=== PATIENT | female | born 1940 | race African-American/Black ===

== ENCOUNTER 2019-05-20 19:11 | Inpatient (IN) | payer OTHER ==
[~2019-05-20] VITALS: Ht 165.1 cm; Wt 87.1 kg
[~2019-05-20 19:11] MED LIST: AVELOX400 MG PO; CALCIUM 500 +1 EAC5; CO Q-1010 MG; DOXYCYCLINE 10100 MG PO; GLUCOPHAGE XR500 MG; MAGNESIUM100 MG; NAPROSYN500 MG; POTASSIUM20; PREDNISONE 20 M20 MG PO; PROVENTIL HFA6.7 G1 INH; RITALIN5 MG; VITAMIN D400 UNI1; VITAMIN E200 UNI4
[2019-05-20 19:12] VITALS: BP 173/83
[2019-05-20 19:59] LABS: ABSOLUTE NEUTROPHILS 13.3 thou/uL (1.4-8.2); BASOPHILS 0.6 % (0.0-2.0); EOSINOPHILS 0.7 % (0.0-3.0); HEMATOCRIT 41.6 % (37.0-47.0); HEMOGLOBIN 13.4 gm/dL (12.0-15.0); LYMPHOCYTES 4.7 % (24.0-44.0); MCH 26.2 pg (26.0-34.0); MCHC 32.2 g/dL (28.0-37.0); MCV 81.5 fL (80.0-100.0); MONOCYTES 6.7 % (1.0-8.0); PLATELET COUNT 206 thou/uL (150-400); POLYS 87.3 % (36.0-66.0); RBC 5.11 mil/uL (4.20-5.00); WBC 15.2 thou/uL (4.0-11.0)
[2019-05-20 20:07] LABS: ANION GAP 8 mmol/L (7-16); BUN 8 mg/dL (7-18); CALCIUM 9.9 mg/dL (8.5-10.1); CHLORIDE 101 mmol/L (98-107); CO2 30 mmol/L (21-32); GLUCOSE 140 mg/dL (74-106); POTASSIUM 3.7 mmol/L (3.5-5.1); SODIUM 139 mmol/L (136-145)
[2019-05-20 20:12] LABS: URINE BILIRUBIN NEGATIVE (Negative); URINE BLOOD NEGATIVE (Negative); URINE CLARITY CLEAR; URINE COLOR YELLOW; URINE GLUCOSE-RANDOM* NEGATIVE (Negative); URINE KETONES 1+ (Negative); URINE LEUKOCYTES-REFLEX TRACE (Negative); URINE NITRITE-REFLEX NEGATIVE (Negative); URINE PROTEIN (DIPSTICK) NEGATIVE (Negative); URINE SPECIFIC GRAVITY 1.015 (1.005-1.035); URINE UROBILINOGEN 0.2 E.U./dl (0.2-1.0)
[2019-05-20 20:13] LABS: ALBUMIN 3.8 g/dL (3.4-5.0); DIRECT BILIRUBIN < 0.1 mg/dL (<0.1-0.3); SGOT 20 U/L (15-37); SGPT 19 U/L (30-65); TOTAL BILIRUBIN 0.4 mg/dL (<0.1-1.0); TOTAL PROTEIN 8.4 g/dL (6.4-8.2)
[2019-05-20 20:26] LABS: BE(vivo) 1.1 mmol/L (-2 to +3); HCO3 25.5 mmol/L (22.0-26.0); PCO2 40.1 mmHg (35.0-45.0); PO2 76.2 mmHg (80.0-100.0); pH 7.422 (7.360-7.450); sO2 95.5 % (92.0-98.0)
[2019-05-20] MEDS ORDERED: ASPIR 8181 MG PO (20:43)
[2019-05-20 21:39] VITALS: BP 157/74
--- NOTE | 2019-05-20 22:04 | NUR ---
ATTEMPTED TO PHONE REPORT TO 4E X 3 WITH NO ANSWER
[2019-05-20 22:41] VITALS: BP 119/71
--- NOTE | 2019-05-21 02:35 | NUR ---
ADMISSION HX,EDUCATION AND ASSESSMENT COMPLETED.PT DENIED PAIN ON ADMIT.BS WAS 122.PT ON 2L/NC.NO CONCERNS VOICED SO FAR.UP WITH SBA TO THE BATHROOM.PT RESTING ON HER BED AT THIS TIME.CALL LIGHT WITHIN REACH.
[2019-05-21 05:28] LABS: HEMATOCRIT 39.5 % (37.0-47.0); HEMOGLOBIN 12.5 gm/dL (12.0-15.0); MCH 25.9 pg (26.0-34.0); MCHC 31.7 g/dL (28.0-37.0); MCV 81.6 fL (80.0-100.0); RBC 4.84 mil/uL (4.20-5.00); RDW 16.1 % (10.5-14.5); WBC 15.8 thou/uL (4.0-11.0)
[2019-05-21 05:32] LABS: CALCIUM 9.2 mg/dL (8.5-10.1); CREATININE 1.2 mg/dL (0.6-1.0); POTASSIUM 4.4 mmol/L (3.5-5.1)
[2019-05-21 05:39] VITALS: BP 154/72
[2019-05-21 07:14] VITALS: BP 158/77
--- NOTE | 2019-05-21 09:14 | EKG ---
[address] [address] ELECTROCARDIOGRAM REPORT Name: CHAVORUSTY GRAHAM Room #: 418-P ADM IN ..#: [id number] ������������������ Admission: 05/20/19 ������������������ Attend Phys: Parmjit Reed MD Discharge: ������������������ Date of : 40 Report #: [id number] ����������������������������������������������������������������� [id number] THIS REPORT FOR: //name// [facility] ED Test Date: 2019-05-20 Test Time: 19:25:33 Pat Name: RUSTY TONY Department: Room: [facility] Gender: F Auto Transmission Technician: BS : 1940 Requested By: Samy Huertas Order Number: [id number] MD: Raji Hendricks Measurements Intervals [place] Rate: 98 P: 69 ME: 119 QRS: 10 QRSD: 88 T: 130 QT: 450 QTc: 575 Interpretive Statements Sinus rhythm Borderline short ME interval RSR' in V1 or V2, probably normal variant Borderline repolarization abnormality Compared to ECG 03/14/2014 11:29:32 Electronically Signed On 05-21-2019 9:13:57 CDT by Raji Hendricks [email or web address] ��������������������������������������������� <ELECTRONICALLY SIGNED> ���������������������������������������� By: Raji Hendricks MD ��������������������������������������������� 05/21/19912 24 24 Raji Hendricks MD /EPI
--- NOTE | 2019-05-21 12:15 | NUR ---
INITIAL ASSESSMENT: Pt evaluated for d/c planning needs. Reviewed chart and spoke with nurse, pt and pt's daughter. Pt is alert and oriented. Pt lives in house with adult son. Pt said she was independent with ADL's prior to admission and used cane for ambulation. Pt has home oxygen from [employer] and nebulizer that she bought herself. She said neither oxygen nor nebulizer are working. Contacted [employer] to let them know re: patient's oxygen. Also asked daughter to bring in nebulizer for RT to check. Pt has not had home health in the past. Pt plans on returning home on d/c from hospital. Will remain available to assist as needed.
--- NOTE | 2019-05-21 15:45 | NUR ---
Assumed care of pt at 0700. Pt alert and oriented x4. 2L O2 baseline. IVF infusing. No c/o pain. Assessment completed. Call light within reach.
[2019-05-21 15:55] VITALS: BP 151/126
[2019-05-21 16:30] VITALS: BP 154/68
[2019-05-21 22:01] VITALS: BP 161/69
--- NOTE | 2019-05-22 05:55 | NUR ---
PATIENT ALERT AND ORIENTED X4. DENIES PAIN. UP TO BSC WITH SBA. ACCUCHECK 195, PATIENT REFUSED INSULIN. O2 AT 2L/NC. SLEPT OFF AND ON DURING NIGHT.
[2019-05-22 06:27] LABS: HEMATOCRIT 39.7 % (37.0-47.0); HEMOGLOBIN 12.6 gm/dL (12.0-15.0); MCH 26.1 pg (26.0-34.0); MCHC 31.8 g/dL (28.0-37.0); MCV 82.1 fL (80.0-100.0); RBC 4.83 mil/uL (4.20-5.00); WBC 18.5 thou/uL (4.0-11.0)
[2019-05-22 06:34] LABS: CREATININE 0.9 mg/dL (0.6-1.0); POTASSIUM 3.7 mmol/L (3.5-5.1)
[2019-05-22 09:01] VITALS: BP 169/82
--- NOTE | 2019-05-22 11:58 | NUR ---
PT ALERT AND ORIENTED TIMES FOUR, WITH PERIODS OF CONFUSION. 98%4L, PT DENIES PAIN/SOA. PT UP TO BSC WITH STANDBY ASSIST. PT HAS REFUSED INSULIN TWICE TODAY, BUT TOLERATES OTHER MEDS AND MEALS. PT DAUGHTER AT BEDSIDE. POSSIBLE PLAN TO DISCHARGE TODAY. WILL CONTINUE TO MONITOR.
[2019-05-22] MEDS ORDERED: PREDNISONE 10 M10 MG PO (13:23)
[2019-05-22] MEDS ORDERED: MUCINEX600 MG PO (13:23)
[2019-05-22] MEDS ORDERED: AZITHROMYCIN 2250 MG PO (13:25)
[2019-05-22] MEDS ORDERED: CEFDINIR300 MG PO (13:32)
[2019-05-22 13:48] VITALS: BP 169/82
[2019-05-22] MEDS ORDERED: CLOBETASOL PROP15 GM TOP (14:19)
== END 2019-05-22 14:58 | disposition home or self-care (01) | DRG 871 ==
LOC: ER 19:11 → 4E 21:19 → EROBS 21:19 → 4E 22:10 → ENTRNSPT 05-22 14:41 → EDTRNSPTSTS 05-22 14:44 → 4E 05-22 14:58
PROVIDERS: Emergency Medicine; Nurse Practitioner Family; ADMIT Hospitalist
DX: A41.9 Sepsis, unspecified organism (principal); J96.21 Acute and chronic respiratory failure with hypoxia; J18.9 Pneumonia, unspecified organism; J44.1 Chronic obstructive pulmonary disease with (acute) exacerbation; I10 Essential (primary) hypertension; M81.0 Age-related osteoporosis without current pathological fracture; G47.419 Narcolepsy without cataplexy; E78.5 Hyperlipidemia, unspecified; E11.9 Type 2 diabetes mellitus without complications; Z79.82 Long term (current) use of aspirin; Z79.899 Other long term (current) drug therapy; Z87.891 Personal history of nicotine dependence
CPT/HCPCS: 10084